=== PATIENT | female | born 1965 | race American Indian/Alaskan Native ===

== ENCOUNTER 2020-05-27 09:22 | Outpatient (CLI) | payer MEDICARE ==
--- NOTE | 2020-05-27 10:55 | Mammography Report ---
DIGITAL SCREENING MAMMOGRAM WITH CAD, 05/27/2020 CLINICAL INFORMATION / INDICATION: Routine screening mammography. SCREENING MAMMO TECHNIQUE: Digital bilateral 2D mammography was obtained in the craniocaudal and mediolateral obliqu e projections. This examination was interpreted with the benefit of Computer-Aided Detection analysis . COMPARISON: 05/22/19. FINDINGS: Breast Density: The breasts are almost entirely fatty. No dominant mass, suspicious calcifications, or architectural distortion in either breast. IMPRESSION: No mammographic evidence of malignancy. Follow up recommendation: Routine yearly BI-RADS Category 1: Negative. A "normal" or negative report should not discourage follow up or biopsy of a clinically significant f inding. A written summary of these findings will be mailed to the patient. The patient will be entered into a mammography reporting system which will generate a reminder letter for the patient's next appointmen t at the appropriate interval. The [employer] recommends yearly mammograms starting at age 40 and continuing as l pam as a woman is in good health. Breast MRI is recommended for women with an approximate 20-25% or greater lifetime risk of breast cancer, including women with a strong family history of breast or ova valentin cancer or who have been treated for Hodgkin's disease. Signer Name: Willian Anton MD Signed: 05/27/2020 10:51 AM Workstation Name: [id number]
== END 2020-05-27 09:23 | disposition home or self-care (01) ==
LOC: MAMMO 09:22
PROVIDERS: ATTEND Nurse Practitioner Family
DX: Z12.31 Encounter for screening mammogram for malignant neoplasm of breast (principal)
CPT/HCPCS: 77067

== ENCOUNTER 2020-12-25 07:35 | Emergency (ER) | payer MEDICARE ==
[2020-12-25 08:29] VITALS: BP 163/94
[2020-12-25] MEDS ORDERED: HYDROcodone/ACETAMINOPHEN 10-325MG TAB PO ONE (08:43)
--- NOTE | 2020-12-25 09:04 | Event Note ---
ED Screening Note Date of service: 12/25/20 Time: 09:01 ED Screening Note: 55-year-old female with a past medical history of hypertension and chronic bilateral lower extremity wounds presents to the ER today complaining of pain to her bilateral lower leg secondary to her wounds. Patient states that she is been having pain and drainage of pus and blood from her wounds to her legs. She was going to wound care but she got released 3 weeks ago. She states that she thought that they were healing, but until he started to become painful and started draining again. She states that she has not been on any antibiotics in the past 3 to 4 weeks. She states that she has not follow-up with her primary care doctor which she is at [facility] since she was released from wound care. She denies any fever chills but she states that she has been vomiting. She is not a diabetic but she states that she was diagnosed with pyoderma gangrenosum when she dose was causing the wounds to her leg. This initial assessment/diagnostic orders/clinical plan/treatment(s) is/are subject to change based on patients health status, clinical progression and re- assessment by fellow clinical providers in the ED. Further treatment and workup at subsequent clinical providers discretion. Patient/guardian urged not to elope from the ED as their condition may be serious if not clinically assessed and managed. Initial orders include: CBC, CMP
[2020-12-25 10:29] LABS: Alanine Aminotransferase 18 units/L (7-56); Albumin 4.3 g/dL (3.9-5); BUN/Creatinine Ratio 13; Blood Urea Nitrogen 12 mg/dL (7-17); Calcium 9.6 mg/dL (8.4-10.2); Hemolysis Index 5
[2020-12-25 12:29] LABS: Hemoglobin 12.6 gm/dl (10.1-14.3); Red Blood Count 4.59 M/mm3 (3.65-5.03)
[2020-12-25 12:30] LABS: Basophils % (Auto) 0.2 % (0.0-1.8); Hematocrit 38.7 % (30.3-42.9); Lymphocytes # (Auto) 1.4 K/mm3 (1.2-5.4); Mean Corpuscular HGB Conc 33 % (30-34); Mean Corpuscular Volume 84 fl (79-97); Monocytes # (Auto) 0.5 K/mm3 (0.0-0.8); Monocytes % (Auto) 5.5 % (0.0-7.3)
[2020-12-25 14:07] LABS: Platelet Count 151 K/mm3 (140-440)
--- NOTE | 2020-12-25 16:16 | Emergency Department Report ---
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 She was followed by Dr. Sellers in wound clinic. With wet-to-dry dressing and antibiotics the ulceration had healed. She was released from wound care 3 weeks ago. She has pain due to her ulceration. She has run out of wound care supplies. Consequently she has put large Band-Aids over the large left ulcer of the left leg. Right leg is completely healed. Patient also has had nodules of the upper extremities. Patient is followed by Dr. Eric Galeana, PCP. She is released by from infectious disease practice. She is followed by [facility]. She is also followed by mechanical estimator who has recommended infusion therapy. MD complaint: rash -: Gradual, week(s) (1 to 2 weeks) Location: LLE Severity: severe Severity scale (0 -10): 10 Quality: aching Consistency: constant Improves with: none Worsens with: none Context: other (Diagnosed 2 years ago at [facility] dermal gangrene) Associated symptoms: denies other symptoms - Related Data Previous Rx's Medication Instructions Recorded Last Taken Type Clindamycin [Clindamycin CAP] 300 mg PO TID 10 Days #30 cap 12/25/20 Unknown Rx HYDROcodone/APAP 5-325 [Sebastian 1 each PO Q6HR PRN #15 tablet 12/25/20 Unknown Rx 5/325] Allergies Allergy/AdvReac Type Severity Reaction Status Date / Time ketorolac [From Toradol] Allergy Unknown Verified 12/25/20 07:53 metoclopramide [From Reglan] Allergy Unknown Verified 12/25/20 07:53 naproxen [From Naprosyn] Allergy Unknown Verified 12/25/20 07:53 Abscess Boil HPI - HPI Chief Complaint: Extremity Injury, Lower Stated Complaint: PAIN IN LEGS Time Seen by Provider: 12/25/20 16:01 Home Medications: Previous Rx's Medication Instructions Recorded Last Taken Type Clindamycin [Clindamycin CAP] 300 mg PO TID 10 Days #30 cap 12/25/20 Unknown Rx HYDROcodone/APAP 5-325 [Sebastian 1 each PO Q6HR PRN #15 tablet 12/25/20 Unknown Rx 5/325] Allergies/Adverse Reactions: Allergies Allergy/AdvReac Type Severity Reaction Status Date / Time ketorolac [From Toradol] Allergy Unknown Verified 12/25/20 07:53 metoclopramide [From Reglan] Allergy Unknown Verified 12/25/20 07:53 naproxen [From Naprosyn] Allergy Unknown Verified 12/25/20 07:53 ED Review of Systems ROS: Stated complaint: PAIN IN LEGS Other details as noted in HPI Comment: All other systems reviewed and negative Constitutional: denies: fever Respiratory: denies: cough, shortness of breath Cardiovascular: denies: chest pain Gastrointestinal: denies: abdominal pain, nausea, vomiting Skin: rash, lesions ED Past Medical Hx - Past Medical History Previous Medical History?: Yes Hx Hypertension: Yes Hx Arthritis: Yes (Rheumatoid) Hx Kidney Stones: Yes Additional medical history: Kidney disease - Surgical History Past Surgical History?: Yes Additional Surgical History: Skin grafts to legs, Hysterectomy, - Social History Smoking Status: Never Smoker Substance Use Type: Prescribed - Medications Home Medications: Home Medications Medication Instructions Recorded Confirmed Last Taken Type Clindamycin [Clindamycin CAP] 300 mg PO TID 10 Days #30 cap 12/25/20 Unknown Rx HYDROcodone/APAP 5-325 [Sebastian 1 each PO Q6HR PRN #15 tablet 12/25/20 Unknown Rx 5/325] ED Physical Exam - General Limitations: No Limitations General appearance: alert, in no apparent distress - Head Head exam: Present: atraumatic, normocephalic - Eye Eye exam: Present: normal appearance - ENT ENT exam: Present: mucous membranes moist - Neck Neck exam: Present: normal inspection, full ROM - Respiratory Respiratory exam: Present: normal lung sounds bilaterally. Absent: respiratory distress, wheezes, rales, rhonchi - Cardiovascular Cardiovascular Exam: Present: regular rate, normal rhythm, normal heart sounds. Absent: systolic murmur, diastolic murmur, rubs, gallop - GI/Abdominal GI/Abdominal exam: Present: soft, normal bowel sounds. Absent: distended, tenderness, guarding, rebound - Extremities Exam Extremities exam: Present: normal inspection - Neurological Exam Neurological exam: Present: alert, oriented X3 - Psychiatric Psychiatric exam: Present: normal affect, normal mood - Skin Skin exam: Present: other (Several small nodules involving the both forearms) - Other Other exam information: Left leg ulceration beefy red tissue medial left lower leg 10 cm x 7 cm minimal purulent drainage no surrounding cellulitis ED Course Vital Signs 12/25/20 07:55 Temperature 98.3 F Pulse Rate 85 Respiratory 18 Rate Blood Pressure 163/94 O2 Sat by Pulse 98 Oximetry ED Medical Decision Making - Lab Data Result diagrams: 12/25/20 12:09 12/25/20 10:00 Laboratory Results - last 24 hr 12/25/20 12/25/20 10:00 12:09 WBC 9.8 RBC 4.59 Hgb 12.6 Hct 38.7 MCV 84 MCH 28 MCHC 33 RDW 18.0 H Plt Count 151 Lymph % (Auto) 14.0 Storey % (Auto) 5.5 Eos % (Auto) 0.0 Baso % (Auto) 0.2 Lymph # (Auto) 1.4 Storey # (Auto) 0.5 Eos # (Auto) 0.0 Baso # (Auto) 0.0 Seg Neutrophils % 80.3 H Seg Neutrophils # 7.9 H Sodium 135 L Potassium 3.1 L Chloride 102.7 Carbon Dioxide 14 L Anion Gap 21 BUN 12 Creatinine 0.9 Estimated GFR > 60 BUN/Creatinine Ratio 13 Glucose 144 H Calcium 9.6 Total Bilirubin 0.30 AST 27 ALT 18 Alkaline Phosphatase 147 H Total Protein 8.7 H Albumin 4.3 Albumin/Globulin Ratio 1.0 - Medical Decision Making Patient has history of rheumatoid arthritis and polyderma gangrene. She has chronic left leg ulcer followed by wound clinic. Recently released from wound care. I suspect that patient will need further wound care education. The ulcer was covered with multiple large bandaids with adhesive. Patient will benefit from wet-to-dry dressing. She will need minimal amount of debridement. I have prescribed clindamycin for possible superinfection. I have referred patient back to Dr. Sellers's wound care clinic. CBC chemistry unremarkable. Patient is discharged with prescription for clindamycin and Sebastian. Patient received p.o. Sebastian for pain relief in emergency department. Critical care attestation.: If time is entered above; I have spent that time in minutes in the direct care of this critically ill patient, excluding procedure time. ED Disposition Clinical Impression: Chronic ulcer of left leg, Infected ulcer of skin, Rheumatoid arthritis Disposition: HOME / SELF CARE / HOMELESS Is pt being admited?: No Does the pt Need Aspirin: No Condition: Stable Prescriptions: Clindamycin [Clindamycin CAP] 300 mg PO TID 10 Days #30 cap HYDROcodone/APAP 5-325 [Sebastian 5/325] 1 each PO Q6HR PRN #15 tablet PRN Reason: Pain Referrals: MANOLO SELLERS DO [Staff Physician] - 3-5 Days
[2020-12-25] MEDS ORDERED: HYDROcodone/ACETAMINOPHEN 5-325 MG TAB PO ONE (16:19)
[2020-12-25] MEDS ORDERED: ONDANSETRON 4 MG ODT TAB PO ONE (16:19)
== END 2020-12-25 18:48 | disposition home or self-care (01) ==
LOC: ED 07:35
DX: L97.929 Non-pressure chronic ulcer of unspecified part of left lower leg with unspecified severity (principal); L98.499 Non-pressure chronic ulcer of skin of other sites with unspecified severity; M06.9 Rheumatoid arthritis, unspecified; Z88.8 Allergy status to other drugs, medicaments and biological substances; Z87.39 Personal history of other diseases of the musculoskeletal system and connective tissue; I10 Essential (primary) hypertension
CPT/HCPCS: 36415; 80053; 85025; 99283; Q0162

== ENCOUNTER 2021-05-30 08:22 | Outpatient (CLI) | payer MEDICARE ==
--- NOTE | 2021-05-30 12:28 | Mammography Report ---
DIGITAL SCREENING MAMMOGRAM WITH CAD, 05/30/2021 CLINICAL INFORMATION / INDICATION: Routine screening mammography. SCREENING MAMMOGRAM TECHNIQUE: Digital bilateral 2D mammography was obtained in the craniocaudal and mediolateral obliqu e projections. This examination was interpreted with the benefit of Computer-Aided Detection analysis . COMPARISON: 05/22/2019 and 05/27/2020. FINDINGS: Breast Density: The breasts are almost entirely fatty. No dominant mass, suspicious calcifications, or architectural distortion in either breast. IMPRESSION: No mammographic evidence of malignancy. Follow up recommendation: Routine yearly BI-RADS Category 1: NEGATIVE A "normal" or negative report should not discourage follow up or biopsy of a clinically significant f inding. A written summary of these findings will be mailed to the patient. The patient will be entered into a mammography reporting system which will generate a reminder letter for the patient's next appointmen t at the appropriate interval. The [employer] recommends yearly mammograms starting at age 40 and continuing as l pam as a woman is in good health. Breast MRI is recommended for women with an approximate 20-25% or greater lifetime risk of breast cancer, including women with a strong family history of breast or ova valentin cancer or who have been treated for Hodgkin's disease. Signer Name: Willian Anton MD Signed: 05/30/2021 12:24 PM Workstation Name: [id number]
== END 2021-05-30 08:23 | disposition home or self-care (01) ==
LOC: MAMMO 08:22
PROVIDERS: ATTEND Nurse Practitioner Family
DX: Z12.31 Encounter for screening mammogram for malignant neoplasm of breast (principal); N64.89 Other specified disorders of breast
CPT/HCPCS: 77067